=== PATIENT | female | born 1950 | race African-American/Black ===

== ENCOUNTER → 2016-05-18 | Outpatient (CLI) | payer MEDICARE, BC ==
[~2016-05-18] MED LIST: ACYCLOVIR400 MG ORAL; ALENDRONATE SOD70 MG ORAL; BACTRIM-DS1 EA ORAL; CATAPRES0.1 MG ORAL; DAILY VITAMIN1 EAC4 ORAL; ENSURE PO; HEPARIN SO5000 UNIT6 SQ; HI-CAL1000 ML PO; IMURAN50 MG PO; LISINOPRIL10 MG ORAL; MEGACE40 MG PO; METOPROLOL TAR100 MG ORAL; MIRALAX17 G2 ORAL; NORCO 5-325 TA1 EACH ORAL; PHOSPHA 250 NE250 M1 PO; PREDNISONE20 MG ORAL; PRO STAT RC PO; SERTRALINE HCL25 MG ORAL; SIMVASTATIN20 MG ORAL; TYLENOL 8 HOUR650 M1 ORAL; ZYPREXA10 MG ORAL
[2016-05-18 17:02] LABS: MEAN CORPUSCULAR HEMOGLOBIN 29.1 PG (27.0-31.0); MEAN CORPUSCULAR HGB CONC 31.8 G/DL (32.0-36.0); MEAN CORPUSCULAR VOLUME 92 FL (80-99); MEAN PLATELET VOLUME 9.5 FL (6.5-10.1); PLATELET COUNT 114 K/UL (150-450); RED CELL DISTRIBUTION WIDTH 15.2 % (11.6-14.8); WHITE BLOOD COUNT 4.9 K/UL (4.8-10.8)
[2016-05-18 19:01] LABS: BAND NEUTROPHILS % (MANUAL) 4 % (0-8); LYMPHOCYTES % (MANUAL) 7 % (20-45); NEUTROPHILS % (MANUAL) 80 % (45-75); TOTAL CELLS COUNTED 100
[2016-05-18 19:02] LABS: ANISOCYTOSIS 1+; BASOPHILS % (MANUAL) 0 % (0-2); EOSINOPHILS % (MANUAL) 0 % (0-3); PLATELET ESTIMATE DECREASED; PLATELET MORPHOLOGY NORMAL
== END | disposition home or self-care (01) ==
LOC: LAB 16:36
DX: D47.3 Essential (hemorrhagic) thrombocythemia (principal)
CPT/HCPCS: 36415; 85007; 85025

== ENCOUNTER 2016-11-23 14:38 | Outpatient (CLI) | payer MEDICARE, BC | END 2016-11-23 16:38 | disposition home or self-care (01) | LOC: LAB 14:38 | DX: M32.9 Systemic lupus erythematosus, unspecified (principal) | CPT/HCPCS: 36415; 83036 ==

== ENCOUNTER 2017-03-29 15:00 | Outpatient (CLI) | payer MEDICARE, BC ==
[2017-03-29 15:33] LABS: HEMOGLOBIN 12.8 G/DL (12.0-16.0); MEAN CORPUSCULAR VOLUME 92 FL (80-99); PLATELET COUNT 122 K/UL (150-450); RED BLOOD COUNT 4.35 M/UL (4.20-5.40); RED CELL DISTRIBUTION WIDTH 14.4 % (11.6-14.8); WHITE BLOOD COUNT 2.2 K/UL (4.8-10.8)
[2017-03-29 15:35] LABS: BASOPHILS % (AUTO) 2.1 % (0.0-2.0); EOSINOPHILS % (AUTO) 2.3 % (0.0-3.0); LYMPHOCYTES % (AUTO) 10.1 % (20.0-45.0); MONOCYTES % (AUTO) 19.4 % (1.0-10.0); NEUTROPHILS % (AUTO) 66.2 % (45.0-75.0)
[2017-03-29 15:42] LABS: ANION GAP 7 mmol/L (5-15); BLOOD UREA NITROGEN 20 mg/dL (7-18); CARBON DIOXIDE 25 MMOL/L (21-32); CHLORIDE 106 MMOL/L (98-107); CREATININE 0.8 MG/DL (0.55-1.30); POTASSIUM 4.4 MMOL/L (3.5-5.1); SODIUM 138 MMOL/L (136-145)
== END 2017-03-29 17:00 | disposition home or self-care (01) ==
LOC: LAB 15:00
DX: E11.9 Type 2 diabetes mellitus without complications (principal); D69.6 Thrombocytopenia, unspecified
CPT/HCPCS: 36415; 80048; 83036; 85025

== ENCOUNTER 2018-04-25 13:26 | Outpatient (CLI) | payer MEDICARE, BC ==
[2018-04-25 13:56] LABS: HEMATOCRIT 38.1 % (37.0-47.0); HEMOGLOBIN 11.9 G/DL (12.0-16.0); MEAN CORPUSCULAR VOLUME 88 FL (80-99); PLATELET COUNT 135 K/UL (150-450); RED BLOOD COUNT 4.31 M/UL (4.20-5.40); RED CELL DISTRIBUTION WIDTH 15.5 % (11.6-14.8); WHITE BLOOD COUNT 3.2 K/UL (4.8-10.8)
[2018-04-25 14:14] LABS: ALANINE AMINOTRANSFERASE 23 U/L (12-78); ANION GAP 8 mmol/L (5-15); ASPARTATE AMINO TRANSFERASE 19 U/L (15-37); BILIRUBIN,TOTAL 0.2 MG/DL (0.2-1.0); BLOOD UREA NITROGEN 30 mg/dL (7-18); CALCIUM 10.4 MG/DL (8.5-10.1); CARBON DIOXIDE 26 MMOL/L (21-32); CHLORIDE 106 MMOL/L (98-107); CREATININE 0.8 MG/DL (0.55-1.30); POTASSIUM 3.8 MMOL/L (3.5-5.1); SODIUM 140 MMOL/L (136-145)
[2018-04-25 14:15] LABS: ALBUMIN 3.8 G/DL (3.4-5.0); ALBUMIN/GLOBULIN RATIO 0.9 (1.0-2.7); ALKALINE PHOSPHATASE 112 U/L (46-116)
== END 2018-04-25 15:26 | disposition home or self-care (01) ==
LOC: LAB 13:26
DX: M32.9 Systemic lupus erythematosus, unspecified (principal)
CPT/HCPCS: 36415; 80053; 83036; 84443; 85007; 85025

== ENCOUNTER 2018-07-26 12:01 | Outpatient (CLI) | payer MEDICARE, BC | END 2018-07-26 14:01 | disposition home or self-care (01) | LOC: LAB 12:01 | DX: E83.52 Hypercalcemia (principal) | CPT/HCPCS: 83970 ==

== ENCOUNTER → 2018-10-12 | Outpatient (CLI) | payer MEDICARE, BC ==
[2018-10-12 12:34] LABS: HEMATOCRIT 39.4 % (37.0-47.0); HEMOGLOBIN 12.3 G/DL (12.0-16.0); MEAN CORPUSCULAR VOLUME 88 FL (80-99); PLATELET COUNT 159 K/UL (150-450); RED BLOOD COUNT 4.46 M/UL (4.20-5.40); RED CELL DISTRIBUTION WIDTH 16.3 % (11.6-14.8)
[2018-10-12 12:55] LABS: ALANINE AMINOTRANSFERASE 21 U/L (12-78); ALBUMIN 3.8 G/DL (3.4-5.0); ALBUMIN/GLOBULIN RATIO 0.8 (1.0-2.7); ALKALINE PHOSPHATASE 114 U/L (46-116); ANION GAP 7 mmol/L (5-15); ASPARTATE AMINO TRANSFERASE 20 U/L (15-37); BILIRUBIN,TOTAL 1.1 MG/DL (0.2-1.0); BLOOD UREA NITROGEN 19 mg/dL (7-18); CALCIUM 11.2 MG/DL (8.5-10.1); CARBON DIOXIDE 26 MMOL/L (21-32); CHLORIDE 105 MMOL/L (98-107); CHOLESTEROL 201 MG/DL (< 200); CREATININE 0.7 MG/DL (0.55-1.30); HDL CHOLESTEROL 59 MG/DL (40-60); POTASSIUM 3.8 MMOL/L (3.5-5.1); SODIUM 138 MMOL/L (136-145); TRIGLYCERIDES 110 MG/DL (30-150)
[2018-10-12 12:56] LABS: BILIRUBIN,DIRECT 0.1 MG/DL (0.0-0.3)
== END | disposition home or self-care (01) ==
LOC: LAB 11:41
DX: E83.52 Hypercalcemia (principal); M32.9 Systemic lupus erythematosus, unspecified
CPT/HCPCS: 36415; 80053; 80061; 82248; 82306; 83036; 83970; 84443; 85007; 85025